=== PATIENT | female | born 1985 | race American Indian/Alaskan Native ===

== ENCOUNTER 2018-05-06 07:55 | Inpatient (IN) | payer MEDICAID ==
[~2018-05-06 07:55] MED LIST: ANCEF/STERILE WATER 2 GM/20 ML 2 GM/20 ML SYRINGE IV NR; APRESOLINE IV PRN; DILAUDID IV PRN; FLAGYL 500 MG/100 ML 500 MG/100 ML BAG IV NR; LOVENOX SUB-Q NR; MARCAINE-EPI 0.5%-1:200,000 INFILTRATI ONE; NACL 0.9% IR ONE; TRANSDERM-SCOP TD SCH; XYLOCAINE 1% 20 mL INFILTRATI ONE; ZOFRAN IV PRN
--- NOTE | 2018-05-06 10:21 | Anesthesia Consultation ---
Anesthesia Consult and Med Hx Date of service: 05/06/18 - Airway Anesthetic Teeth Evaluation: Good ROM Head & Neck: Adequate Mental/Hyoid Distance: Adequate Mallampati Class: Class II Intubation Access Assessment: Good - Pulmonary Exam CTA: Yes - Cardiac Exam Cardiac Exam: No Murmur - Pre-Operative Health Status ASA Pre-Surgery Classification: ASA3 - Pre-Anesthesia Comment Pre-Anesthesia Comments: Morbid Obesity. Patient tolerates 6 METS. No chest pain or SOB. no cold or flu. no n/v. Has AICD for paroxysmal dysrhytmias since 2004 (deviced has never fired). CHF (Dilated Cardiomyopathy): Followed by wet process miller head assistant. EF now improved to >40%. Patient tolerates complete recumbent positioning with no problem. Takes furosemide and spironolactone daily. GERD controlled on Medications. Glucose Intollerance: Diet Regulated. Anxiety: Patient currently anxious - Pulmonary Hx Smoking: No Hx Sleep Apnea: No - Cardiovascular System Hx Hypertension: Yes (2004) Hx Internal Defibrillator: Yes (ICD) - Central Nervous System Hx Psychiatric Problems: Yes - Hematic Hx Anemia: Yes - Other Systems Hx Alcohol Use: No Hx Substance Use: No Hx Cancer: No Hx Obesity: Yes
--- NOTE | 2018-05-06 10:22 | Anesthesia Day of Surgery ---
Anesthesia Day of Surgery - Day of Surgery Patient Examined: Yes Patient H&P Reviewed: Yes Patient is NPO: Yes Beta Blockers: No (patient takes her beta blockers at night)
[2018-05-06] MEDS ORDERED: ZOFRAN IV PRN (10:23)
[2018-05-06] MEDS ORDERED: NARCAN 0.4 MG/1 ML IV PRN (10:23)
[2018-05-06] MEDS ORDERED: DILAUDID IV PRN (10:23)
[2018-05-06] MEDS ORDERED: DEMEROL IV PRN (10:23)
[2018-05-06] MEDS: LACTATED RINGERS 1,000 ML IV SCH (10:31)
[2018-05-06] MEDS ORDERED: VERSED IV NR (11:00)
[2018-05-06] MEDS ORDERED: DIPRIVAN 10 MG/ML IV ONE (12:28)
[2018-05-06] MEDS ORDERED: DILAUDID ONE ×2 (13:19→15:24)
[2018-05-06] MEDS ORDERED: XYLOCAINE 1% 20 mL ONE (13:42)
[2018-05-06] MEDS ORDERED: MARCAINE-EPI 0.5%-1:200,000 INFILTRATI ONE ×2 (13:42→13:47)
[2018-05-06] MEDS ORDERED: NACL 0.9% IR ONE ×2 (13:47)
[2018-05-06] MEDS ORDERED: XYLOCAINE 1% 20 mL INFILTRATI ONE (13:47)
[2018-05-06] MEDS ORDERED: ZOFRAN ONE (14:32)
[2018-05-06] MEDS ORDERED: REGLAN ONE (14:32)
[2018-05-06] MEDS ORDERED: QUELICIN ONE (14:32)
[2018-05-06] MEDS ORDERED: XYLOCAINE MPF 2% ONE (14:32)
[2018-05-06] MEDS ORDERED: ZEMURON IV ONE (14:32)
[2018-05-06] MEDS ORDERED: NACL 0.9% 1000 ML 1,000 ML ONE (15:08)
[2018-05-06] MEDS ORDERED: NEO SYNEPHRINE/NS Syringe(OR USE) IV ONE (15:23)
[2018-05-06] MEDS: DILAUDID IV PRN ×2 (15:45→16:03)
--- NOTE | 2018-05-06 15:55 | Operative Report ---
Operative Report Operative Report: DATE OF PROCEDURE 05/06/18 PREOPERATIVE DIAGNOSES: Morbid obesity POSTOPERATIVE DIAGNOSES: 1.Hiatal hernia SURGEON: Dr. Dickens GUEST SERVICE TEAM LEADER: Dr.Speights Epperson DO PROCEDURE: 1. laparoscopic sleeve gastrectomy 2. laparoscopic hiatal hernia repair ANESTHESIA: General. ESTIMATED BLOOD LOSS: 5 mL. COMPLICATIONS: None. SPECIMEN: Partial gastrectomy. FINDINGS: 1. hiatal hernia INDICATION FOR PROCEDURE: Patient is 32 year-old with a long history of morbid obesity. The patient has tried multiple efforts at weight loss without intermodal dispatcher success. Pt is here today for sleeve gastrectomy. PROCEDURE IN DETAIL: After consent was reviewed, patient was taken back to the operating room, where patient was placed supine on the bed with both arms out. The patient's legs were doubly strapped to the bed. Patient had a foot board in place. Patient had a body warmer placed by anesthesia. Patient was then prepped and draped in normal sterile surgical fashion. After a time-out was called, a stab incision in the left upper quadrant and inserted a veress needle through this incision and insufflated the abdomen to 18 mmHg pressure. Once the abdomen was adequately insuflated an incision was made in the umbilicus and a 15mm trocar was inserted via optiveiw technique with a 10-0 camera. I then placed a 45-degree scope through this port and inspected the abdomen. There was no injury on entry of the abdomen or at the site of the veress needle placement. The veress needle was then removed. I then placed two 5-mm ports in the right upper quadrant, one along the anterior axillary line and 1 subxiphoid below the costovertebral angle. I then placed left upper quadrant port along the anterior axillary line in a similar fashion. An additional 5mm port was placed left mid quadrant. Propr to each port placement local anesthesia was used. I then placed the liver retractor through the subxiphoid port and placed the patient in full reverse Trendelenburg. The right and left crura were skeletonized accentuating a moderate hiatal hernia. The GE juction was below the level of the diaphragm. A dissection downward 1-2cm of esophagus was intrabadominal without tension. An anterior cruraplasty was perfromed with a figure-of-8 stitch using Endostich with 0 ethibond suture to reapproximate the crura. I then identified the pylorus and then counted off 6cm from the pylorus. I then used a LigaSure cutting device to enter into the lesser sac. At that point and then I took down the short gastrics all the way up to the left kiley. Then I had anesthesia pass down a 40 Ukrainian bougie along the lesser curvature of the stomach. I made sure everything else was out of the abdomen except the bougie. I then created my gastric sleeve using a 60-mm laparoscopic stapler. . The sleeve looked good without any twisting or torsion. I then had anesthesia to remove the bougie. Hemostasis was obtained along the staple line. I observed the staple line for 45 sec and noted no bleeding. I then used Tiseel along the entirety of the staple line and some on the liver. I then removed liver grasper and took it off the field. I then removed the stomach through the 15-mm umbilcal port. I then closed that fascia with a #1 PDS in a yeioaz-od-arfan fashion using a Isaias-Jose Roberto. I then desufflated the abdomen and then removed all port sites. I then closed the incisions with 4-0 Monocryl in subcuticular fashion. I then dressed the wounds with steristrips, gauze and tegaderms. Patient tolerated the procedure well and was transferred to recovery room in good and stable condition
[2018-05-06] MEDS: MYLICON PO PRN (16:10)
[2018-05-06] MEDS: NORCO PO PRN (17:12)
[2018-05-06] MEDS: MORPHINE IV PRN (20:33)
[2018-05-06] MEDS: REGLAN IV PRN (20:34)
[2018-05-06] MEDS: PROTONIX IV SCH (20:36)
[2018-05-07] MEDS: MORPHINE IV PRN (00:34)
[2018-05-07] MEDS: MYLICON PO PRN ×2 (00:34→06:16)
[2018-05-07] MEDS: LACTATED RINGERS 1,000 ML IV SCH ×2 (00:35→10:18)
[2018-05-07] MEDS: NORCO PO PRN ×2 (03:04→10:10)
[2018-05-07] MEDS: REGLAN IV PRN (06:16)
[2018-05-07 08:16] LABS: Basophils % (Auto) 0.3 % (0.0-1.8); Eosinophils % (Auto) 0.2 % (0.0-4.3); Hematocrit 32.9 % (30.3-42.9); Hemoglobin 10.6 gm/dl (10.1-14.3); Lymphocytes # (Auto) 2.1 K/mm3 (1.2-5.4); Mean Corpuscular HGB Conc 32 % (30-34); Mean Corpuscular Volume 80 fl (79-97); Monocytes # (Auto) 0.5 K/mm3 (0.0-0.8); Monocytes % (Auto) 6.9 % (0.0-7.3); Platelet Count 317 K/mm3 (140-440); Red Blood Count 4.14 M/mm3 (3.65-5.03); Red Cell Distribution Width 16.4 % (13.2-15.2)
[2018-05-07 08:26] LABS: BUN/Creatinine Ratio 10; Blood Urea Nitrogen 7 mg/dL (7-17); Calcium 8.8 mg/dL (8.4-10.2); Hemolysis Index 0
[2018-05-07 08:35] LABS: Mean Corpuscular Hemoglobin 26 pg (28-32)
[2018-05-07] MEDS ORDERED: ALDACTONE PO SCH (10:00)
[2018-05-07] MEDS ORDERED: PAXIL PO SCH (10:00)
[2018-05-07] MEDS ORDERED: COREG PO SCH (10:00)
[2018-05-07] MEDS ORDERED: ZESTRIL PO SCH (10:00)
[2018-05-07] MEDS: PROTONIX IV SCH (10:18)
[2018-05-07] MEDS ORDERED: LOVENOX SUB-Q SCH (11:00)
--- NOTE | 2018-05-07 14:52 | Discharge Summary ---
Providers - Providers Date of Admission: 05/06/18 08:03 Attending physician: SIDDHARTHA CARMONA Hospitalization Procedures: laparoscopic sleeve gastrectomy with hiatal hernia repair Hospital course: 32 y.o. F with hx of morbid obesity presented for bariatric surgery. she underwent a laparoscopic sleeve gastrectomy with hiatal hernia repair and tolerated the procedure well. On POD 1 her pain was controlled with PO pain medications, she was tolerating liquids and denied nausea or vomiting. She was discharged on POD 1. Disposition: DC-01 TO HOME OR SELFCARE Core Measure Documentation - Palliative Care Palliative Care/ Comfort Measures: Not Applicable - Core Measures Any of the following diagnoses?: none Exam - Physical Exam Narrative exam: GEn: A+ox3 cardio RRR LUngs: equal rise and fall abd: soft, tender at incision sites, dressings clean and dry. no rebound no guarding. obese - Constitutional Vitals: Temp Pulse Resp BP Pulse Ox 98.2 F 84 20 133/84 100 05/07/18 11:22 05/07/18 11:22 05/07/18 11:22 05/07/18 11:22 05/07/18 11:22 Plan Activity: other (no lifting >15lbs for 6 weeks) Additional Instructions: Clear sugar free liquid diet for the next week. Goal fluid intake is 64oz. Goal protein intake is 60g. Follow up with: ALEXIS KILGORE [Other] - 7 Days
[2018-05-07 17:19] VITALS: BP 146/86
== END 2018-05-07 17:00 | disposition home or self-care (01) | DRG 327 ==
LOC: 3A 08:03 → 3B-SURG 16:18
PROVIDERS: ADMIT Specialist; ATTEND Specialist
PROC: 0DB64Z3 Excision of Stomach, Percutaneous Endoscopic Approach, Vertical (ICD-10-PCS; principal; 2018-05-06)
PROC: 0BQT4ZZ Repair Diaphragm, Percutaneous Endoscopic Approach (ICD-10-PCS; 2018-05-06)
DX: K44.9 Diaphragmatic hernia without obstruction or gangrene (principal); I50.22 Chronic systolic (congestive) heart failure; I42.0 Dilated cardiomyopathy; Z68.42 Body mass index [BMI] 45.0-49.9, adult; E66.01 Morbid (severe) obesity due to excess calories; I10 Essential (primary) hypertension; D64.9 Anemia, unspecified; K21.9 Gastro-esophageal reflux disease without esophagitis; I11.0 Hypertensive heart disease with heart failure; Z71.3 Dietary counseling and surveillance; Z95.810 Presence of automatic (implantable) cardiac defibrillator; Z82.49 Family history of ischemic heart disease and other diseases of the circulatory system; Z98.51 Tubal ligation status
CPT/HCPCS: 36415; 80048; 83735; 84703; 85025; 88307; A4217; C9113; C9250; J0330; J0690; J1170; J1650; J2250; J2270; J2370; J2405; J2704; J2765; J7030; J7120